=== PATIENT | male | born 1990 | race Caucasian/White ===

== ENCOUNTER 2016-06-19 22:00 | Emergency (ER) | payer OTHER ==
[2016-06-19] MEDS ORDERED: LORazepam 2 MG/ML SYRINGE IV STA (22:09)
[2016-06-19] MEDS ORDERED: KETOROLAC 30 MG/ML 1 ML VIAL IVP STA (22:09)
[2016-06-19] MEDS ORDERED: SODIUM CHLORIDE 0.9% 1,000 ML IV STA (22:09)
--- NOTE | 2016-06-19 22:13 | ED ---
Chest Pain HPI - General Chief Complaint: Chest Pain Stated Complaint: chest pain Time Seen by Provider: 06/19/16 22:05 Source: patient Mode of arrival: EMS Limitations: no limitations - History of Present Illness Initial Comments: Patient is a 25-year-old male with past medical history of polysubstance abuse including cocaine, alcohol and opiates presenting with this onset of substernal nonradiating chest pain. Patient is at [facility] for recovery. Patient will have chest pain at this facility and was given GI cocktail and nitro without relief. Patient is at [facility] with CIWA scores less than 8 receiving Ativan 1-2 mg when necessary. Patient denies fever, chills, shortness breath, nausea, vomiting, diarrhea, dysuria. Patient denies diabetes, hypertension, lipidemia, early heart disease in the family. Patient denies history of DVT/PE, recent travel/surgery/trauma, cancer, hemoptysis. - Related Data Home Medications Medication Instructions Recorded Confirmed Acetaminophen Tab [Tylenol Tab] 650 mg PO Q4H PRN MDD 6 tablets 06/19/16 Chlorpheniramine Maleate 4 mg PO Q4H PRN MDD 4 doses 06/19/16 06/19/16 [Chlor-Trimeton] Ibuprofen [Motrin] 600 mg PO Q6HR PRN 06/19/16 06/19/16 LORazepam [Ativan] 1 mg PO BID PRN 06/19/16 06/19/16 LORazepam [Ativan] 1 mg PO Q4-6H 06/19/16 06/19/16 LORazepam [Ativan] 1 mg PO TID PRN 06/19/16 06/19/16 Mirtazapine [Remeron] 15 mg PO HS 06/19/16 06/19/16 Multivitamins, Thera [Multivitamin 1 tab PO DAILY 06/19/16 06/19/16 (formulary)] Allergies Allergy/AdvReac Type Severity Reaction Status Date / Time No Known Allergies Allergy Verified 06/19/16 22:22 Review of Systems ROS Statement: Those systems with pertinent positive or pertinent negative responses have been documented in the HPI. Constitutional: No fever and no chills. HENT: No congestion, no rhinorrhea and no sore throat. Eyes: No discharge and no redness. Respiratory: No cough and no shortness of breath. Cardiovascular: +chest pain and no palpitations. Gastrointestinal: No nausea, no vomiting, no abdominal pain and no diarrhea. Genitourinary: No dysuria and no hematuria. Musculoskeletal: No back pain and no arthralgias. Skin: No pallor and no rash. Neurological: No dizziness and No headaches. ROS Other: All systems not noted in ROS Statement are negative. EKG Findings - EKG Comments: EKG Findings:: Rate 101. Sinus tachycardia. No ST-T wave changes. CA internal normal . QRS interval normal. QTc duration normal. Past Medical History Past Medical History: No Reported History History of Any Multi-Drug Resistant Organisms: None Reported Past Surgical History: No Surgical Hx Reported Past Psychological History: Depression Smoking Status: Current every day smoker Past Alcohol Use History: Daily Past Drug Use History: Cocaine, Heroin, Marijuana General Exam - General Exam Comments Initial Comments: Constitutional: Patient appears well-developed and well-nourished. No distress. Head: Normocephalic and atraumatic. Eyes: Conjunctivae and EOM are normal. Right eye exhibits no discharge. Left eye exhibits no discharge. No scleral icterus. Neck: Normal range of motion. Neck supple. Cardiovascular: Tachycardic. No murmur heard. Pulmonary/Chest: Effort normal and breath sounds normal. No respiratory distress. No wheezes. Reproducible anterior chest wall tenderness. Abdominal: Soft. No distension. There is no tenderness. There is no rebound and no guarding. Musculoskeletal: Normal range of motion. No edema or tenderness. Neurological: Patient alert and oriented to person, place, and time. Skin: Skin is warm and dry. +diaphoretic. Nursing notes and vitals reviewed. Limitations: no limitations Course Vital Signs 06/19/16 22:02 Temperature 97.9 F Pulse Rate 88 Respiratory 16 Rate Blood Pressure 137/78 O2 Sat by Pulse 96 Oximetry - Reevaluation(s) Reevaluation #1: 06/19/16 23:48 Patient with improvement of pain after Toradol and Ativan. Chest [facility] Patient is a 25-year-old male with past history of polysubstance abuse presenting with chest pain at [facility]. Cardiac workup unremarkable including EKG, troponin, CBC, BMP. Patient was tachycardic for which d-dimer was obtained and negative. Patient feeling better after medication with Toradol and Ativan. Prior to discharge, patient was resting comfortably in bed. Course of stay improved. Denies pain. Discussed physical exam and diagnostic tests with patient. Questions answered and patient is agreeable to discharge with close follow up with Primary Care Physician. Instructed to return to Emergency Department if symptoms worsen. Patient was noted to have asymptomatic hypertension. Discussed the importance of prompt follow-up with primary care doctor. Disposition Clinical Impression: Chest pain, Chest wall pain Disposition: HOME SELF-CARE Condition: Good Instructions: Chest Pain (ED), Costochondritis (ED) Referrals: Charly Gallardo DO [Primary Care Provider] - 1-2 days
[2016-06-19 22:31] LABS: Basophils # (A) 0.1 k/uL (0-0.2); Basophils % (A) 2 %; CH 31.6; Eosinophils # (A) 0.1 k/uL (0-0.7); Eosinophils % (A) 2 %; HCT 46.4 % (39.0-53.0); HDW 2.13; HGB 15.1 gm/dL (13.0-17.5); Luc # (Auto) 0.17; Luc % (Auto) 3; Lymphocytes # (A) 1.2 k/uL (1.0-4.8); Lymphocytes % (A) 22 %; MCH 31.3 pg (25.0-35.0); MCHC 32.6 g/dL (31.0-37.0); MCV 96.2 fL (80.0-100.0); Mean Platelet Volume 8.7; Monocytes # (A) 0.3 k/uL (0-1.0); Monocytes % (A) 5 %; Neutrophils # (A) 3.5 k/uL (1.3-7.7); Neutrophils % (A) 66 %; RBC 4.83 m/uL (4.30-5.90); RDW 13.7 % (11.5-15.5); WBC 5.4 k/uL (3.8-10.6); WBC (Perox) 5.21
[2016-06-19 22:42] LABS: Anion Gap 5 mmol/L; Blood Urea Nitrogen 9 mg/dL (9-20); Calcium 9.6 mg/dL (8.4-10.2); Carbon Dioxide 29 mmol/L (22-30); Chloride 107 mmol/L (98-107); Glucose 102 mg/dL (74-99); Non-African American GFR(MDRD) >60 (>60 ml/min/1.73 sqM); Potassium 4.1 mmol/L (3.5-5.1); Sodium 141 mmol/L (137-145)
--- NOTE | 2016-06-19 22:58 | XR ---
EXAM: XR Chest, 1 View CLINICAL HISTORY: Reason: Pain TECHNIQUE: Frontal view of the chest. COMPARISON: No relevant prior studies available. FINDINGS: Lungs: Unremarkable. No edema or consolidation. Pleural space: Unremarkable. No pneumothorax. Heart: Unremarkable. No cardiomegaly. IMPRESSION: No acute cardiopulmonary process.
[2016-06-19] MEDS ORDERED: cloNIDine HCL 0.2 MG TAB PO STA (23:46)
[2016-06-20 00:23] VITALS: BP 159/92; PULSE 84; RESP 18; TEMP 99.1
== END 2016-06-20 00:23 | disposition home or self-care (01) ==
LOC: SUPCPDRO 22:00 → EC 22:00
DX: R07.89 Other chest pain (principal); I10 Essential (primary) hypertension; R00.0 Tachycardia, unspecified; F32.9 Major depressive disorder, single episode, unspecified; F17.200 Nicotine dependence, unspecified, uncomplicated; Z79.899 Other long term (current) drug therapy
CPT/HCPCS: 36415; 93005; 85379; 80048; 84484; 85025; 71010; 99285; 96374; 96375; 96361; J2060; J1885